=== PATIENT | male | born 1965 | race Caucasian/White ===

== ENCOUNTER 2017-08-23 23:34 | Emergency (ER) | payer MEDICAID ==
[2017-08-24] MEDS: CLINDAMYCIN 300 MG INJ IM (03:53)
[2017-08-24] MEDS: DIPHTH/TET/ACEL PERTUSS (ADULT) 0.5 ML VIAL IM* (04:15)
== END 2017-08-24 04:16 | disposition home or self-care (01) ==
LOC: FTE 23:34
DX: S61.411A Laceration without foreign body of right hand, initial encounter (principal); W23.1XXA Caught, crushed, jammed, or pinched between stationary objects, initial encounter; Y92.9 Unspecified place or not applicable; Z23 Encounter for immunization
CPT/HCPCS: 90471; 90715; 96372; 99284-25